=== PATIENT | female | born 2005 | race Caucasian/White ===

== ENCOUNTER 2024-08-14 18:12 | Emergency (ER) | payer OTHER, SELFPAY ==
[2024-08-14 18:16] VITALS: BP 111/67; PULSE 80; RESP 16; TEMP 36.8; O2SAT 100
--- NOTE | 2024-08-14 18:16 | ED_ITS ---
HPI - Abdominal Pain General Chief Complaint: Abdominal Pain Stated Complaint: abd pain after eating Related Data Allergies Allergy/AdvReac Type Severity Reaction Status Date / Time penicillin Allergy Intermediate Rash Uncoded 08/14/24 18:19 [facility] Social History Social History Advance Directives: No Advance Directives Information Provided: No Do you have a plan to hurt others: No Plan Physical Exam ED Vital Signs: Vital Signs - 24 hr 08/14/24 18:16 Temperature 98.3 F Pulse Rate 80 Respiratory Rate 16 Blood Pressure 111/67 Pulse Oximetry 100 Oxygen Delivery Method Room Air BMI result Body Mass Index 20.0 Course Course Course Narrative: This is a Rapid Medical Examination (RME) performed by Zo Snow PA-C in triage. Full HPI, ROS, assessment and treatment plan per primary provider in the Main ED. 19 yo female with history of endometriosis who presents to the ER for evaluation of epigastric abdominal pain and nausea that started this morning after eating a bagel. stabbing, aching, pain. no vomiting or diarrhea. last BM yesterday. no urinary symptoms. LMP 2 weeks ago. on exam patient appears well, awake alert, no distress. her lungs are CTAB w/ RRR cardiac exam. her epigastric area is mildly tender but abd is soft and nondistended. no guarding. no peripheral edema Plan: labs - low suspicion for pancreatitis or cholecystitis. most likely GERD vs gastritis. Medical Decision Making Lab Data 08/14/24 18:32 08/14/24 18:32 Labs: Lab Results 08/14/24 Range/Units 18:32 WBC 6.8 (4.8-10.8) X10*3/uL RBC 4.33 (4.20-5.50) X10*6/uL Hgb 13.7 (12.0-16.0) g/dl Hct 39.0 (37.0-47.0) % MCV 90.1 (80.0-98.0) fL MCH 31.6 (27.0-33.0) pg MCHC 35.1 H (31.0-35.0) g/dl RDW 11.2 (11.0-16.0) % Plt Count 294 (160-400) X10*3/uL MPV 9.9 (9.4-12.3) fL Immature Gran % (Auto) 0.1 (0.0-0.4) % Neut % (Auto) 51.2 (45-73) % Lymph % (Auto) 37.4 (20-40) % [facility] % (Auto) 8.2 (2-11) % Eos % (Auto) 2.5 (0-4) % Baso % (Auto) 0.6 (0-2) % Lymph # (Auto) 2.5 (1.2-4.9) X10*3/uL [facility] # (Auto) 0.6 (0.1-1.2) X10*3/uL Eos # (Auto) 0.2 (0.0-0.4) X10*3/uL Baso # (Auto) 0.0 (0.0-0.2) X10*3/uL Abs Immat Gran (auto) 0.01 (0.00-0.03) X10*3/uL Absolute Neuts (auto) 3.5 (2.0-8.3) x10*3/uL Absolute Nucleated RBC 0.000 (0.0-0.012) X10*3/uL Nucleated RBC % (auto) 0.0 (0.0-0.2) /100WBC Sodium 143 (135-145) mmol/L Potassium 3.7 (3.3-5.1) mmol/L Chloride 108 (96-108) mmol/L Carbon Dioxide 28 (22-29) mmol/L Anion Gap 11 L (12-20) BUN 10 (9-16) mg/dL Creatinine 0.74 (0.5-1.4) mg/dL Estim Creat Clear Calc 103.3 Estimated GFR > 60 Random Glucose 83 (60-115) mg/dL Calcium 9.3 (8.4-10.2) mg/dL Magnesium 2.1 (1.6-2.6) mg/dL Total Bilirubin 0.6 (0.0-1.0) mg/dL Direct Bilirubin 0.2 (0.0-0.5) mg/dL AST 37 H (5-31) U/L ALT 20 (0-31) U/L Alkaline Phosphatase 55 (39-117) U/L Total Protein 7.1 (6.5-8.0) g/dL Albumin 4.5 (3.5-5.0) g/dL Discharge Plan Discharge Clinical Impression: Acute epigastric pain Patient Disposition: Left W/O Completing Treatment Discharge Date/Time: 08/14/24 21:23
[2024-08-14 18:35] LABS: MANUAL DIFF FLAG NO
[2024-08-14 18:43] LABS: Basophils Percent Auto 0.6 % (0-2); Eosinophils Absolute Auto 0.2 X10*3/uL (0.0-0.4); Eosinophils Percent Auto 2.5 % (0-4); Hemoglobin 13.7 g/dl (12.0-16.0); Imm Gran Abs Auto 0.01 X10*3/uL (0.00-0.03); Imm Gran Pct Auto 0.1 % (0.0-0.4); Lymphocytes Absolute Auto 2.5 X10*3/uL (1.2-4.9); Lymphocytes Percent Auto 37.4 % (20-40); Mean Corpuscular HGB Conc 35.1 g/dl (31.0-35.0); Mean Corpuscular Hemoglobin 31.6 pg (27.0-33.0); Mean Corpuscular Volume 90.1 fL (80.0-98.0); Mean Platelet Volume 9.9 fL (9.4-12.3); Monocytes Absolute Auto 0.6 X10*3/uL (0.1-1.2); Monocytes Percent Auto 8.2 % (2-11); Neutrophils Absolute Auto 3.5 x10*3/uL (2.0-8.3); Neutrophils Percent Auto 51.2 % (45-73); Platelet Count 294 X10*3/uL (160-400); Red Blood Count 4.33 X10*6/uL (4.20-5.50); Red Cell Distribution Width 11.2 % (11.0-16.0); White Blood Count 6.8 X10*3/uL (4.8-10.8)
[2024-08-14 18:50] LABS: Alanine Aminotransferase 20 U/L (0-31); Albumin Level 4.5 g/dL (3.5-5.0); Alkaline Phosphatase 55 U/L (39-117); Anion Gap 11 (12-20); Aspartate Amino Transferase 37 U/L (5-31); Bilirubin Direct 0.2 mg/dL (0.0-0.5); Bilirubin Total 0.6 mg/dL (0.0-1.0); Blood Urea Nitrogen 10 mg/dL (9-16); Calcium 9.3 mg/dL (8.4-10.2); Carbon Dioxide 28 mmol/L (22-29); Chloride 108 mmol/L (96-108); Creatinine Clr Calc Pharmacy 103.3; Estimated Glomerular Filt Rate > 60; Glucose Random 83 mg/dL (60-115); Magnesium 2.1 mg/dL (1.6-2.6); Potassium 3.7 mmol/L (3.3-5.1); Sodium 143 mmol/L (135-145); Total Protein 7.1 g/dL (6.5-8.0)
== END 2024-08-14 21:23 | disposition left against medical advice (07) ==
PROVIDERS: Physician Assistant; Emergency Provider Emergency Medicine
DX: R10.13 Epigastric pain (principal)
CPT/HCPCS: 36415; 80048; 80076; 83735; 85025; 99281; 99283